=== PATIENT | male | born 1975 | race American Indian/Alaskan Native ===

== ENCOUNTER 2018-08-29 12:42 | Emergency (ER) | payer SELFPAY ==
[2018-08-29] MEDS ORDERED: KEPPRA 1,000 MG/NS 0.75% 100ML 1,000 MG/100 ML BAG IV ONE (13:00)
--- NOTE | 2018-08-29 13:03 | Emergency Department Report ---
HPI - General Chief Complaint: Seizure Time Seen by Provider: 08/29/18 12:52 - HPI HPI: 43-year-old -[place] male presents to the emergency department via EMS from a friend's house at a local apartment complex with complaint of a seizure. Apparently the patient had a witnessed seizure that was tonic-clonic and lasted about 2 minutes without any associated trauma. The patient is currently awake but slightly disoriented/postictal and his only complaint at this time is that he bit his tongue. He does admit to a seizure history and says he last had one about 3 weeks ago. The patient is on Keppra 500 mg twice daily which he says he ran out of about 3 days ago. He says that he goes to [place] for any other primary care or neurology needs. He is a tobacco smoker but denies any illicit drug use. ED Past Medical Hx - Past Medical History Hx Hypertension: Yes Hx CVA: Yes (L sided deficit) Hx Seizures: Yes - Surgical History Hx Coronary Stent: Yes ED Review of Systems ROS: Stated complaint: SEIZURE Other details as noted in HPI Comment: All other systems reviewed and negative Constitutional: denies: chills, fever Eyes: denies: eye pain, vision change ENT: denies: ear pain, throat pain Respiratory: denies: cough, shortness of breath Cardiovascular: denies: chest pain, palpitations Gastrointestinal: denies: abdominal pain, vomiting Genitourinary: denies: dysuria, discharge Musculoskeletal: denies: back pain, arthralgia Skin: denies: rash, lesions Neurological: other (seizure). denies: numbness Physical Exam - Physical Exam Physical Exam: GENERAL: The patient is well-developed well-nourished. HENT: Normocephalic. Atraumatic. Patient has moist mucous membranes. EYES: Extraocular motions are intact. Pupils equal reactive to light bilaterally. No nystagmus. NECK: Supple. Trachea is midline. CHEST/LUNGS: Clear to auscultation. There is no respiratory distress noted. HEART/CARDIOVASCULAR: Regular. There is no tachycardia. There is no murmur. ABDOMEN: Abdomen is soft, nontender. Patient has normal bowel sounds. There is no abdominal distention. SKIN: Skin is warm and dry. NEURO: The patient is awake, alert, and cooperative. Currently AAO x [address], but not time. The patient has no motor or sensory deficits. The patient has normal speech. CN II - XII grossly intact. MUSCULOSKELETAL: There is no tenderness or deformity. There is no evidence of acute injury. ED Course - Reevaluation(s) Reevaluation #1: 08/29/18 15:24 I was notified that the patient is refusing any lab work to be done or to be placed on the monitor to have an EKG completed. At this point, the patient is awake, alert, oriented x 3. He has no focal, motor or sensory deficits and his cranial nerves are intact. I discussed with him that without any workup, but I cannot see if there are other reasons for the patient's recurrent seizures, other than medication noncompliance. He understands that and still does not want any further workup done and is asking to leave. Since the patient is awake, alert, and has a normal decision making capacity at this time, he has signed out AGAINST MEDICAL ADVICE. The patient did not wait for any discharge information or medication refill or referrals as his ride arrived. ED Medical Decision Making - Medical Decision Making This patient presented after having a seizure and even without his Keppra for the past 3 days. At the time of my evaluation the patient is awake and alert but is only oriented to person and place but not time. He is not far off saying that it was 2012 instead of 2018 but still was slightly postictal. The patient was with a gram of Keppra. As previously mentioned, the patient became more awake and alert and then refused any labs or further evaluation. He understands the risks of leaving and has normal decision-making capacity and then signed out AMA. We did have a conversation and he understands that he can return to the emergency department if he changes his mind about further evaluation, further seizure-like activity, any acute distress. - Differential Diagnosis medication noncompliance, epilepsy, substance abuse, dysrythmia Critical Care Time: No Critical care attestation.: If time is entered above; I have spent that time in minutes in the direct care of this critically ill patient, excluding procedure time. ED Disposition Clinical Impression: Seizure, Noncompliance with medication regimen Hypertension Qualifiers: Hypertension type: essential hypertension Qualified Code(s): I10 - Essential (primary) hypertension Disposition: LEFT AGAINST MED ADVICE Is pt being admited?: No Condition: Stable Instructions: Hypertension (ED) Forms: AMA Form Time of Disposition: 15:29
[2018-08-29 14:49] VITALS: BP 152/101
== END 2018-08-29 16:03 | disposition left against medical advice (07) ==
LOC: ED 12:42
DX: G40.909 Epilepsy, unspecified, not intractable, without status epilepticus (principal); I10 Essential (primary) hypertension; F17.200 Nicotine dependence, unspecified, uncomplicated; R41.0 Disorientation, unspecified
CPT/HCPCS: 96365; 99284; J1953